=== PATIENT | female | born 1960 | race Caucasian/White ===

== ENCOUNTER → 2016-12-02 | Outpatient (CLI) | payer MEDICAID | LOC: FIMAGING 08:08 | DX: Z12.31 Encounter for screening mammogram for malignant neoplasm of breast (principal) | CPT/HCPCS: G0202 ==

== ENCOUNTER 2018-06-01 13:57 | Emergency (ER) | payer MEDICAID ==
--- NOTE | 2018-06-01 14:24 | EDPHY ---
H & P Stated Complaint: left knee pain Time Seen by Provider: 06/01/18 14:09 HPI/ROS: CHIEF COMPLAINT: Left knee pain x7 days HISTORY OF PRESENT ILLNESS: 58-year-old female with no coagulopathic disorder, no history of recent trauma, arrives via private vehicle complaining of left prepatellar soft tissue swelling on left popliteal fossa tenderness and "a knot " present for the past 7 days. No trauma history. No discoloration. Able to bear weight albeit with discomfort. Able to perform range of motion albeit with discomfort. No skin discoloration. No fever chills. No flu-like symptoms. No polyarthralgias. REVIEW OF SYSTEMS: 10 systems reviewed and negative with the exception of the elements mentioned in the history of present illness PAST MEDICAL & SURGICAL HISTORY: No pertinent medical or surgical history SOCIAL HISTORY: Nonsmoker PHYSICAL EXAM (Prior to examination, patient consented to physical exam, hands were washed and my usual and customary physical exam procedures followed) 1) GENERAL: Well-developed, well-nourished, alert and oriented. Appears to be in no acute distress. 2) HEAD: Normocephalic, atraumatic 3) HEENT: Sclera anicteric. 4) NECK: Full range of motion, no meningeal signs. 5) LUNGS: Clear auscultation bilaterally, no wheezes, no rhonchi, no retractions. 6) HEART: Regular rate and rhythm, no murmur, no heave, no gallop. 7) ABDOMEN: No guarding, no rebound, no focal tenderness, negative McBurney's, negative Cheney's, negative Rovsing's, negative peritoneal sign, 8) MUSCULOSKELETAL: [Left lower extremity: Negative Homans no palpable cord, soft compartments, prepatellar edema is noted. There is normal coloration, normal temperature of the left knee. She is able to extend to 180 degrees and flex to 90 degrees albeit with a "tight feeling" . Negative Homans no palpable cord. Brisk DP and PT pulses distally with normal color normal temperature. Capillary refill less than 2 sec. 9) BACK: , no visual or palpable abnormality. 10) SKIN: No rash, no petechiae. 11) Psychiatric: Patient is oriented X 3, there is no agitation. DIFFERENTIAL DIAGNOSIS: In no particular order including but limited to septic arthritis, crystalline induced arthritis, rheumatic disease, DJD, DVT, Can cyst - Personal History Current Tetanus/Diphtheria Vaccine: Yes Current Tetanus Diphtheria and Acellular Pertussis (TDAP): Yes - Medical/Surgical History Hx Asthma: No Hx Chronic Respiratory Disease: No Hx Diabetes: No Hx Cardiac Disease: No Hx Renal Disease: No Hx Cirrhosis: No Hx Alcoholism: No Hx HIV/AIDS: No Hx Splenectomy or Spleen Trauma: No Other PMH: parotic nerve tumor 2001, appendectomy, - Social History Smoking Status: Former smoker Constitutional: Initial Vital Signs Temperature (C) 36.7 C 06/01/18 13:59 Heart Rate 67 06/01/18 13:59 Respiratory Rate 18 06/01/18 13:59 Blood Pressure 119/89 H 06/01/18 13:59 O2 Sat (%) 98 06/01/18 13:59 O2 Delivery Mode Room Air Allergies/Adverse Reactions: No Known Allergies Allergy (Verified 06/01/18 14:04) Home Medications: Medication Instructions Recorded Wellbutrin Sr 06/01/18 Medical Decision Making ED Course/Re-evaluation: 2:20 p.m.: I have evaluated the patient, recommend ultrasound and x-ray. Although on clinical examination I think that her symptoms less than likely represent septic arthritis, I did recommend diagnostic arthrocentesis which she adamantly declines. She inquired about an MRI from the emergency department. I do not think emergent MRI is indicated at this time although this may be indicated on an outpatient basis. She has been informed that all of her emergency department studies may be normal. I stressed the importance of follow-up as this may require further follow-up with specialties such as Rheumatology, orthopedics and her primary care provider. She verbalizes understanding of this. Doubt compartment syndrome. 3:07 p.m.: Ultrasound positive for Can cyst interpreted by Dr. Rocío Pinto. Images reviewed myself x-ray interpreted by myself shows no definitive acute osseous abnormality. Patient was re-evaluated with serial exams. Discussed her imaging results. We discussed the multiple possible etiologies for her knee swelling including her Can cyst. I recommend follow up with Orthopedics. She continues to decline diagnostic arthrocentesis. Departure - Departure Disposition: Home, Routine, Self-Care Clinical Impression: Synovial cyst of popliteal space [Can], left knee Condition: Good Instructions: Bakers Cyst (ED) Additional Instructions: Return to the ER immediately if you experience discoloration, have worsening pain, numbness, tingling, or any other symptoms that concern you. If you received x-rays in the emergency department today, be advised, that ligamentous , tendon, muscular, and other non-bony injury cannot be fully ruled out. Try to keep your affected extremity elevated above the level of your chest, and keep cold packs on the affected area, for the next 48 hours. Referrals: Belle Regalado DO [Primary Care Provider] - 1-2 days without fail Bennie Campbell MD [Medical Doctor] - 5-7 days, call for appt. Oziel Perez MD [[facility] [place]] - 5-7 days, call for appt.
[2018-06-01 15:28] VITALS: BP 108/78
== END 2018-06-01 15:37 | disposition home or self-care (01) ==
DX: M71.22 Synovial cyst of popliteal space [Baker], left knee (principal); M25.562 Pain in left knee

== ENCOUNTER → 2019-01-24 | Outpatient (CLI) | payer MEDICAID | LOC: FIMAGING 11:34 | PROVIDERS: ATTEND Obstetrics & Gynecology | DX: Z12.31 Encounter for screening mammogram for malignant neoplasm of breast (principal) ==

== ENCOUNTER → 2019-02-02 | Outpatient (CLI) | payer MEDICAID | LOC: FIMAGING 14:35 ==

== ENCOUNTER 2019-02-24 14:34 | Emergency (ER) | payer MEDICAID | END 2019-02-24 15:14 | disposition home or self-care (01) ==